=== PATIENT | male | born 1995 | race Caucasian/White ===

== ENCOUNTER 2019-01-02 00:59 | Emergency (ER) | payer OTHER ==
[~2019-01-02] VITALS: Ht 190.5 cm; Wt 104.5 kg
[2019-01-02 01:06] VITALS: BP 127/80
[2019-01-02] MEDS ORDERED: CLARITIN 1010 MG/TAB PO (01:14)
[2019-01-02 02:08] LABS: HEMATOCRIT 42.7 % (42.0-52.0); HEMOGLOBIN 14.2 g/dL (13.5-18.0); MEAN CELL VOLUME 88 fl (78-100); MEAN CORPUSCULAR HEMOGLOBIN 29 pg (27-31); MEAN CORPUSCULAR HGB CONC 33 g/dL (33-37); MEAN PLATELET VOLUME 9.5 fl (7.4-10.4); PLATELET COUNT 318 K/mm3 (130-400); RED BLOOD COUNT 4.85 M/mm3 (4.20-5.60); RED CELL DISTRIBUTION WIDTH 13.1 % (11.5-14.5); WHITE BLOOD COUNT 9.8 K/mm3 (4.8-10.8)
[2019-01-02 02:34] LABS: BAND 0 % (0-10); LYMPHOCYTE 24 % (20-51); MONOCYTE 7 % (3-10); NEUTROPHILS 62 % (42-75)
[2019-01-02 03:09] LABS: ERYTHROCYTE SEDIMENTATION RATE 8 mm/hr (0-15)
== END 2019-01-02 03:23 | disposition home or self-care (01) ==
LOC: ED 00:59
PROVIDERS: Family Medicine
DX: M79.642 Pain in left hand (principal); F17.210 Nicotine dependence, cigarettes, uncomplicated

== ENCOUNTER → 2019-04-28 | Outpatient (CLI) | payer OTHER ==
[~2019-04-28] MED LIST: CLARITIN 1010 MG/TAB PO
== END ==
LOC: RAD 08:16
DX: S46.111A Strain of muscle, fascia and tendon of long head of biceps, right arm, initial encounter (principal)